=== PATIENT | female | born 1940 | race Caucasian/White ===

== ENCOUNTER → 2016-04-19 | Outpatient (CLI) | payer OTHER ==
--- NOTE | 2016-04-19 17:41 | DX ---
Thoracolumbar spine, 2 views. History: Fell on ice. Pain. Findings: The thoracic and lumbar spine is poorly visualized in this patient secondary to diffuse ost eopenia/osteoporosis. Given this limitation, no compression fracture or subluxation is identified. Ma rked intervertebral disk height loss is identified L5-S1. Mild lumbar dextroscoliosis. Impression: 1. Technically limited examination. No definite compression fracture identified. L5-S1 degenerative d isk disease. Comment: If patient's symptoms persist, consider MRI or CT for further evaluation.
--- NOTE | 2016-04-19 17:43 | DX ---
Left RIBS, 2 views, without chest. History: Trauma. Pain. Findings: Limited left rib examination is negative for displaced rib fracture. The ribs are somewhat poorly visualized secondary to underlying osteopenia/osteoporosis. Impression: 1. Negative limited left rib series for displaced fracture.
== END ==
LOC: GIMAGING 16:10
PROVIDERS: ATTEND Internal Medicine
DX: R07.81 Pleurodynia (principal); M51.37 Other intervertebral disc degeneration, lumbosacral region; M41.86 Other forms of scoliosis, lumbar region
CPT/HCPCS: 71100-PO; 72080-PO